=== PATIENT | male | born 1965 | race Caucasian/White ===

== ENCOUNTER 2025-01-15 11:33 | Emergency (ER) | payer OTHER ==
[2025-01-15] MEDS: Sodium Chloride 0.9% 1,000 ML IV ONE (11:59)
[2025-01-15] MEDS: Ondansetron 4 MG/2 ML SDV IVPUSH ONE ×2 (11:59→13:39)
[2025-01-15 13:56] LABS: BASOPHILS PERCENT AUTO 0.2 % (0.1-1.3); EOSINOPHILS PERCENT AUTO 0.2 % (0.0-5.4); HEMATOCRIT 41.8 % (38.4-49.7); HEMOGLOBIN 14.5 g/dL (12.9-16.9); IMMATURE GRAN ABSOLUTE AUTO 0.04 K/uL (0.00-0.23); IMMATURE GRAN PERCENT AUTO 0.3 % (0.0-0.7); LYMPHOCYTES PERCENT AUTO 7.6 % (11.4-47.7); MEAN CORPUSCULAR HGB CONC 34.7 g/dL (31.6-35.5); MEAN CORPUSCULAR VOLUME 95.2 fL (81.4-99.0); MONOCYTES ABSOLUTE AUTO 0.72 K/uL (0.20-0.90); MONOCYTES PERCENT AUTO 6.1 % (3.3-12.6); NEUTROPHILS ABSOLUTE AUTO 10.08 K/uL (1.0-7.6); NEUTROPHILS PERCENT AUTO 85.6 % (40.0-78.1); PLATELET COUNT,PLT 317 K/uL (130-375); RED BLOOD CELL COUNT 4.39 M/uL (4.14-5.76); WHITE BLOOD CELL COUNT,WBC 11.8 K/uL (3.2-11.0)
[2025-01-15 14:05] LABS: BASOPHILS ABSOLUTE AUTO 0.02 K/uL (0.00-0.10); EOSINOPHILS ABSOLUTE AUTO 0.02 K/uL (0.00-0.40)
[2025-01-15 14:06] LABS: A/G RATIO 1.2 (1.2-2.2); ALANINE AMINOTRANSFERASE,ALT 32 U/L (12-78); ALBUMIN 4.2 g/dL (3.4-5.0); ALKALINE PHOSPHATASE 70 U/L (46-116); ASPARTATE AMNIOTRANSFERASE,AST 17 U/L (15-37); BILIRUBIN TOTAL 0.8 mg/dL (0.2-1.0); BLOOD UREA NITROGEN,BUN 21 mg/dL (7-18); CALCIUM 9.8 mg/dL (8.5-10.1); CARBON DIOXIDE,CO2 26 mmol/L (21-32); CHLORIDE,CL 102 mmol/L (100-108); EST CRCL DRUG DOSING (CG) 87.67 mL/min; ESTIMATED GFR 86 mL/min (>60); GLUCOSE RANDOM 127 mg/dL (74-106); POTASSIUM,K 3.6 mmol/L (3.6-5.2); PROTEIN TOTAL,TP 7.6 g/dL (6.4-8.2); SODIUM,NA 142 mmol/L (140-148)
[2025-01-15 14:07] LABS: AMPHETAMINES SCREEN, URINE NEGATIVE (NEGATIVE); BARBITURATE SCREEN,URINE NEGATIVE (NEGATIVE); BENZODIAZEPINES SCREEN,URINE NEGATIVE (NEGATIVE); METHADONE SCREEN, URINE NEGATIVE (NEGATIVE); METHAMPHETAMINES SCREEN, URINE NEGATIVE (NEGATIVE); OXYCODONE SCREEN,URINE NEGATIVE (NEGATIVE); PROPOXYPHENE SCREEN,URINE NEGATIVE (NEGATIVE); THC SCREEN,URINE 50 NG/ML PRESUMPTIVE POSITIVE (NEGATIVE)
[2025-01-15] MEDS: HYDROmorphone 1 MG/ML Syringe IVPUSH ONE (14:25)
== END 2025-01-15 15:51 | disposition home or self-care (01) ==
LOC: JP.ED 11:33
DX: R11.10 Vomiting, unspecified (principal); R10.13 Epigastric pain; Z88.0 Allergy status to penicillin
CPT/HCPCS: 36415; 80053; 80305; 83690; 85025; 96361; 96374; 96375; 96376; 99284; J1171; J2405; J7030; 99283